=== PATIENT | male | born 1985 | race Caucasian/White ===

== ENCOUNTER 2017-08-28 18:44 | Emergency (ER) | payer BC ==
[2017-08-28 19:02] VITALS: BP 133/75; PULSE 84; RESP 18; TEMP 98.4
[2017-08-28] MEDS ORDERED: HYDROcodone/APAP 5-325MG 1 EACH TAB PO STA (19:13)
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
--- NOTE | 2017-08-28 19:51 | XR ---
EXAMINATION TYPE: XR lumbosacral spine min 4V DATE OF EXAM: 08/28/2017 COMPARISON: NONE HISTORY: 32-year-old male with low back pain since slip and fall TECHNIQUE: 5 views FINDINGS: 5 lumbar type vertebral bodies. No pars interarticularis defect. Vertebral body heights are maintaine d and alignment is preserved. No significant degenerative change seen. IMPRESSION: No vertebral compression collapse or malalignment. No significant spondylotic change.
== END 2017-08-28 20:16 | disposition home or self-care (01) ==
LOC: EC 18:44
DX: S39.012A Strain of muscle, fascia and tendon of lower back, initial encounter (principal); V91.39XA Hit or struck by falling object due to accident to unspecified watercraft, initial encounter; Y93.89 Activity, other specified
CPT/HCPCS: 72110; 99283

== ENCOUNTER 2021-10-19 21:27 | Emergency (ER) | payer OTHER ==
[2021-10-19 21:45] VITALS: BP 160/104; PULSE 74; RESP 18; TEMP 98
[2021-10-19] MEDS ORDERED: LIDOCAINE 1% INJ 10MG/ML (20 ML MDV) SQ ONE (22:14)
[2021-10-19] MEDS ORDERED: DIPH,PERTUS(ACELL)TETVAC-LF 0.5 ML VIAL IM ONE (22:14)
[2021-10-19] MEDS ORDERED: BACITRACIN OINT 1 EACH PACKET TOPICAL ONE (23:03)
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
== END 2021-10-19 23:13 | disposition home or self-care (01) ==
LOC: EC 21:27
DX: S01.81XA Laceration without foreign body of other part of head, initial encounter (principal); S01.112A Laceration without foreign body of left eyelid and periocular area, initial encounter; V86.95XA Unspecified occupant of 3- or 4- wheeled all-terrain vehicle (ATV) injured in nontraffic accident, initial encounter; Y93.19 Activity, other involving water and watercraft
CPT/HCPCS: 90715; 99282; 12013; 90471; J2001